=== PATIENT | female | born 1995 | race African-American/Black ===

== ENCOUNTER 2023-03-21 12:24 | Emergency (ER) | payer MEDICAID ==
[~2023-03-21] VITALS: Ht 165.1 cm; Wt 53.6 kg
[2023-03-21 14:16] VITALS: BP 116/70
== END 2023-03-21 15:10 | disposition home or self-care (01) ==
LOC: ER 12:24
DX: S01.511A Laceration without foreign body of lip, initial encounter (principal); Z88.1 Allergy status to other antibiotic agents; Y04.0XXA Assault by unarmed brawl or fight, initial encounter; Y93.89 Activity, other specified; Y92.89 Other specified places as the place of occurrence of the external cause; Y99.8 Other external cause status